=== PATIENT | female | born 1950 | race Caucasian/White ===

== ENCOUNTER → 2023-01-07 | Outpatient (CLI) | payer MEDICARE | END | disposition home or self-care (01) | LOC: LAB 11:37 | PROVIDERS: ATTEND Student in an Organized Health Care Education/Training Program | DX: M10.9 Gout, unspecified (principal) | CPT/HCPCS: 36415; 84550 ==

== ENCOUNTER → 2023-10-24 | Outpatient (CLI) | payer MEDICARE ==
[2023-10-24] MEDS: REGADENOSON 0.4 MG/5 ML PF SYG IVP ONE (12:01)
== END | disposition home or self-care (01) ==
LOC: SHCH 07:45
PROVIDERS: ATTEND Internal Medicine Cardiovascular Disease
DX: I10 Essential (primary) hypertension (principal); R07.89 Other chest pain
CPT/HCPCS: 78452; 96374; 93017; J2785; A9500 ×2